=== PATIENT | male | born 1965 | race Caucasian/White ===

== ENCOUNTER → 2016-06-03 | Outpatient (CLI) | payer OTHER ==
[~2016-06-03] VITALS: Ht 172.7 cm; Wt 111.0 kg
[~2016-06-03] MED LIST: ACCUPRIL10 MG PO; ACTOS15 MG PO; ASPIRIN325 MG PO; ASPIRIN81 M2 PO; ATORVASTATIN CA20 MG PO; BUPROBAN150 MG PO; BUPROPION HCL150 M2 PO; BUPROPION XL150 MG PO; CARAFATE1 GM PO; CARVEDILOL6.25 MG PO; CELEXA40 MG PO; CHEWABLE MULTI1 EAC1 PO; CITALOPRAM HBR40 MG PO; COREG12.5 MG PO; COREG6.25 M1 PO; CYANOCOBALAM1000 MCG PO; ERGOCALCIF50000 UNIT PO; FEROSUL325 MG PO; GABAPENTIN400 MG PO; HUMALOG100 UNIT/1 SC; HUMALOG100 UNITS/ PO; HUMULIN N100 UNIT/2 SC; HYDROCHLOROTH12.5 M3 PO; IRON325 MG PO; JANUVIA25 M1 PO; LEVEMIR FL100 UNITS/ PO; LEVEMIR FL100 UNITS/ SC; LEVEMIR SC; LEVEMIR100 UNIT/2 SC; LEVEMIR100 UNIT/2 SQ; LISINOPRIL40 MG PO; LOVASTATIN40 MG PO; MIRALAX255 GM PO; MULTIVITAMINS1 EAC6 PO; NEURONTIN400 M1 PO; NEURONTIN400 MG PO; NIFEDICAL XL30 MG PO; NOVOLOG PE100 UNITS/ SC; NOVOLOG100 UNIT/2 SQ; Novolog Pen 3 Ml SC; OMEPRAZOLE40 M1 PO; PREVACID15 MG PO; PRILOSEC40 MG PO; REGLAN10 MG PO; VITAMIN B-122500 MCG PO; VITAMIN B-122500 MCG SL; VITAMIN D3400 UNI2 PO; VITAMIN D5000 UNIT PO; VITAMIN E100 UNIT PO; VITAMIN E400 UNI1 PO; VITAMIN E400 UNI6 PO; VITAMIN E400 UNIT PO; WELLBUTRIN75 MG PO; ZANTAC150 MG PO; ZESTRIL5 MG PO; ZETIA10 MG PO
[2016-06-03 10:44] LABS: POINT-OF-CARE METER ID UU14174212; POINT-OF-CARE USER ID AHSRSCSLC11
== END | disposition home or self-care (01) ==
LOC: OPR 06-02 09:00 → EDSTATUS 10:00
PROVIDERS: Specialist
PROC: 0FB03ZX Excision of Liver, Percutaneous Approach, Diagnostic (ICD-10-PCS; principal; 2016-06-03)
DX: K76.0 Fatty (change of) liver, not elsewhere classified (principal); R94.5 Abnormal results of liver function studies; K21.9 Gastro-esophageal reflux disease without esophagitis; E11.9 Type 2 diabetes mellitus without complications; I10 Essential (primary) hypertension
CPT/HCPCS: 77012; 82948; 85027; 85610; 85730; 88307; 88313; J3010

== ENCOUNTER 2016-11-06 04:32 | Emergency (ER) | payer OTHER ==
[~2016-11-06] VITALS: Ht 172.7 cm; Wt 109.0 kg
[2016-11-06 04:55] LABS: POINT-OF-CARE METER ID UU13113702
[2016-11-06 06:01] LABS: POINT-OF-CARE METER ID UU13113702
[2016-11-06 06:19] VITALS: BP 125/72
== END 2016-11-06 06:21 | disposition home or self-care (01) ==
LOC: EME → EDBD 04:32 → EME 04:32
PROVIDERS: Emergency Medicine
DX: E11.649 Type 2 diabetes mellitus with hypoglycemia without coma (principal); J45.909 Unspecified asthma, uncomplicated; E78.5 Hyperlipidemia, unspecified; I10 Essential (primary) hypertension; K21.9 Gastro-esophageal reflux disease without esophagitis; Z87.442 Personal history of urinary calculi; Z86.73 Personal history of transient ischemic attack (TIA), and cerebral infarction without residual deficits; Z79.82 Long term (current) use of aspirin; Z79.4 Long term (current) use of insulin; Z87.891 Personal history of nicotine dependence
CPT/HCPCS: 82948; 99281; 99284

== ENCOUNTER 2016-12-07 11:24 | Observation (INO) | payer OTHER ==
[~2016-12-07] VITALS: Ht 172.7 cm; Wt 104.8 kg
[2016-12-07 12:37] LABS: EOSINOPHIL (%) 2.3 % (0-5); EOSINOPHIL COUNT 0.2 K/uL (0-0.3); HEMATOCRIT 30.8 % (38.0-50.0); IMMATURE GRANULOCYTE (%) 0.3 % (0.0-0.7); INSTRUMENT ABS NEUTROPHIL CT 5.1 K/uL; LYMPHOCYTE COUNT 1.6 K/uL (1.0-2.8); MCH 32.1 PG (29.0-34.0); MCHC 33.8 G/DL (30.0-36.0); MCV 95.1 FL (86-99); MEAN PLAT.VOLUME 11.1 uM^3 (9.0-12.4); MONOCYTE (%) 7.9 % (3-12); MONOCYTE COUNT 0.6 K/uL (0-0.8); NEUTROPHIL COUNT 5.1 K/uL (1.8-6.4); PLATELET COUNT 227 K/uL (156-360); RBC DIS.WIDTH-CV 11.4 % (11.8-14.6); RBC DIS.WIDTH-SD 39.8 % (39-53); RED BLOOD COUNT 3.24 M/uL (4.00-5.50); WHITE BLOOD COUNT 7.4 K/uL (4.1-10.2)
[2016-12-07 12:52] LABS: CHLORIDE 100 mEq/L (99-109); SODIUM 127 mEq/L (136-147)
[2016-12-07 12:55] LABS: ANION GAP 7 MEQ/L (2-14)
[2016-12-07 12:57] LABS: GFR ESTIMATE (CALCULATED) 52 mL/min/
[2016-12-07 12:58] LABS: UREA NITROGEN (BUN) 32 mg/dL (9-23)
[2016-12-07 13:07] LABS: GLUCOSE 650 mg/dL (70-99)
[2016-12-07 14:50] LABS: TROP-I INTERPRETATION NEGATIVE; TROPONIN-I < 0.01 ng/mL (0.0-0.30)
[2016-12-07] MEDS ORDERED: ATORVASTATIN CA10 MG PO (14:51)
[2016-12-07] MEDS ORDERED: BUPROPION XL150 MG PO (14:52)
[2016-12-07] MEDS ORDERED: LISINOPRIL20 MG PO (14:54)
[2016-12-07] MEDS ORDERED: NORVASC5 MG PO (14:55)
[2016-12-07] MEDS ORDERED: METFORMIN HCL500 M1 PO (14:55)
[2016-12-07] MEDS ORDERED: RANITIDINE HCL150 MG PO (14:55)
[2016-12-07] MEDS ORDERED: HUMULIN R500 UNITS/ SC ×3 (14:57→14:58)
[2016-12-07 15:11] LABS: POINT-OF-CARE METER ID UU13113702
[2016-12-07 15:38] LABS: CHLORIDE 104 mEq/L (99-109)
[2016-12-07 15:41] LABS: ANION GAP 12 MEQ/L (2-14)
[2016-12-07 15:44] LABS: GFR ESTIMATE (CALCULATED) 56 mL/min/
[2016-12-07 15:45] LABS: UREA NITROGEN (BUN) 29 mg/dL (9-23)
[2016-12-07 15:46] LABS: GLUCOSE 401 mg/dL (70-99); POTASSIUM 4.7 mEq/L (3.7-5.4); SODIUM 136 mEq/L (136-147)
[2016-12-07 18:24] VITALS: BP 180/74
[2016-12-07 19:26] VITALS: BP 154/83
[2016-12-07 21:31] LABS: POINT-OF-CARE METER ID UU14149397
[2016-12-07 23:47] VITALS: BP 136/65
[2016-12-08 04:01] VITALS: BP 132/64
[2016-12-08 06:28] LABS: ANION GAP 11 MEQ/L (2-14); CHLORIDE 101 MEQ/L (99-109); GFR ESTIMATE (CALCULATED) > 59 mL/min/; GLUCOSE 261 mg/dL (70-99); POTASSIUM 4.7 MEQ/L (3.7-5.4); SAMPLE HEMOLYSIS CHECK 0; SAMPLE ICTERIC CHECK 0; SAMPLE LIPEMIA CHECK 0; SODIUM 136 MEQ/L (136-147); UREA NITROGEN (BUN) 24 mg/dL (9-23)
[2016-12-08 08:49] VITALS: BP 181/82
[2016-12-08 09:13] VITALS: BP 150/70
[2016-12-08 10:52] LABS: POINT-OF-CARE METER ID UU13113702
[2016-12-08 17:05] LABS: ANION GAP 11 MEQ/L (2-14); CHLORIDE 102 MEQ/L (99-109); GFR ESTIMATE (CALCULATED) > 59 mL/min/; POTASSIUM 4.1 MEQ/L (3.7-5.4); SAMPLE HEMOLYSIS CHECK 0; SAMPLE ICTERIC CHECK 0; SAMPLE LIPEMIA CHECK 0; SODIUM 140 MEQ/L (136-147); UREA NITROGEN (BUN) 27 mg/dL (9-23)
[2016-12-08 17:12] LABS: GLUCOSE 80 mg/dL (70-99)
== END 2016-12-08 19:52 | disposition home or self-care (01) ==
LOC: EME 11:24 → 3EAST 15:12 → EDOF 15:12 → 3EAST 18:04
PROVIDERS: Emergency Medicine; Hospitalist; Internal Medicine
DX: E87.5 Hyperkalemia (principal); E11.65 Type 2 diabetes mellitus with hyperglycemia; Z79.4 Long term (current) use of insulin; Z86.73 Personal history of transient ischemic attack (TIA), and cerebral infarction without residual deficits; J45.909 Unspecified asthma, uncomplicated; E78.5 Hyperlipidemia, unspecified; I10 Essential (primary) hypertension; Z88.8 Allergy status to other drugs, medicaments and biological substances; Z87.891 Personal history of nicotine dependence
CPT/HCPCS: 71010; 80048; 80048 91; 82948; 84484; 85025; 93005; 99281; 99285; G0378; J1644; J1815; J7030

== ENCOUNTER 2016-12-25 20:20 | Emergency (ER) | payer OTHER ==
[~2016-12-25] VITALS: Ht 172.7 cm; Wt 107.2 kg
[~2016-12-25 20:20] MED LIST changes: +ATORVASTATIN CA10 MG PO; +HUMULIN R500 UNITS/ SC; +LISINOPRIL20 MG PO; +METFORMIN HCL500 M1 PO; +NORVASC5 MG PO; +RANITIDINE HCL150 MG PO
[2016-12-25 21:28] LABS: HEMATOCRIT 30.7 % (38.0-50.0); MCH 31.8 PG (29.0-34.0); MCHC 33.9 G/DL (30.0-36.0); MCV 93.9 FL (86-99); MEAN PLAT.VOLUME 10.7 uM^3 (9.0-12.4); PLATELET COUNT 220 K/uL (156-360); RBC DIS.WIDTH-CV 11.6 % (11.8-14.6); RBC DIS.WIDTH-SD 39.8 % (39-53); RED BLOOD COUNT 3.27 M/uL (4.00-5.50); WHITE BLOOD COUNT 9.2 K/uL (4.1-10.2)
[2016-12-25 21:37] LABS: ADD MIUA? YES; BILIRUBIN NEGATIVE; BLOOD NEGATIVE; COLOR YELLOW ((YELLOW)); GLUCOSE (STRIP) 50; KETONES NEGATIVE; LEUKOCYTES NEGATIVE; NITRITE NEGATIVE; PROTEIN (STRIP) 30; SPECIFIC GRAVITY 1.014 (1.000-1.030); UROBILINOGEN 0.2 MG/DL (0.2-1.0)
[2016-12-25 21:40] LABS: CHLORIDE 104 mEq/L (99-109); POTASSIUM 4.6 mEq/L (3.7-5.4); SODIUM 136 mEq/L (136-147)
[2016-12-25 21:42] LABS: GLUCOSE 164 mg/dL (70-99)
[2016-12-25 21:43] LABS: ANION GAP 10 MEQ/L (2-14)
[2016-12-25 21:44] LABS: TOTAL BILIRUBIN 0.6 mg/dL (0.0-1.0)
[2016-12-25 21:45] LABS: SERUM ETHYL ALCOHOL < 10 mg/dL
[2016-12-25 21:45] LABS: AMPHETAMINE NEGATIVE (500 ng/mL); BARBITURATES NEGATIVE (200 ng/mL); BENZODIAZEPINES NEGATIVE (150 ng/mL); COCAINE NEGATIVE (150 ng/mL); INTERNAL CONTROLS VALID? YES; METHADONE NEGATIVE (200 ng/mL); METHAMPHETAMINE NEGATIVE (500 ng/mL); OPIATES (MORPHINE) NEGATIVE (100 ng/mL); OXYCODONE NEGATIVE (100 ng/mL); PHENCYCLIDINE NEGATIVE (25 ng/mL); PROPOXYPHENE NEGATIVE (300 ng/mL); THC CANNABINOIDS NEGATIVE (50 ng/mL); TRICYCLIC ANTIDEPRESSANTS NEGATIVE (300 ng/mL)
[2016-12-25 21:46] LABS: ALKALINE PHOSPHATASE 263 IU/L (3-129); GFR ESTIMATE (CALCULATED) 52 mL/min/
[2016-12-25 21:47] LABS: UREA NITROGEN (BUN) 32 mg/dL (9-23)
[2016-12-25 21:55] LABS: BACTERIA RARE /HPF; EPITHELIAL CELLS RARE /HPF; HYALINE CASTS 15-20 /LPF; MUCUS TRACE /LPF; RED BLOOD CELLS 0-5 /HPF (0-5); WHITE BLOOD CELLS 0-5 /HPF (0-5)
[2016-12-25 22:24] VITALS: BP 135/75
== END 2016-12-25 22:25 | disposition home or self-care (01) ==
LOC: EME → EDBD 20:20 → EME 22:25
PROVIDERS: Emergency Medicine
DX: F33.0 Major depressive disorder, recurrent, mild (principal); F71 Moderate intellectual disabilities; E11.9 Type 2 diabetes mellitus without complications; Z79.4 Long term (current) use of insulin; I10 Essential (primary) hypertension; E78.5 Hyperlipidemia, unspecified; Z86.73 Personal history of transient ischemic attack (TIA), and cerebral infarction without residual deficits; Z79.82 Long term (current) use of aspirin; Z87.891 Personal history of nicotine dependence
CPT/HCPCS: 80053; 81003; 85027; 90837; 99281; 99285; G0480

== ENCOUNTER 2017-02-07 15:38 | Emergency (ER) | payer OTHER ==
[~2017-02-07] VITALS: Ht 172.7 cm; Wt 106.9 kg
[2017-02-07 16:50] LABS: EOSINOPHIL (%) 3.5 % (0-5); EOSINOPHIL COUNT 0.3 K/uL (0-0.3); HEMATOCRIT 33.5 % (38.0-50.0); IMMATURE GRANULOCYTE (%) 0.5 % (0.0-0.7); IMMATURE GRANULOCYTE COUNT 0.1 K/uL; INSTRUMENT ABS NEUTROPHIL CT 5.9 K/uL; LYMPHOCYTE COUNT 2.2 K/uL (1.0-2.8); MCH 31.8 PG (29.0-34.0); MCHC 33.7 G/DL (30.0-36.0); MCV 94.4 FL (86-99); MEAN PLAT.VOLUME 10.2 uM^3 (9.0-12.4); MONOCYTE (%) 8.4 % (3-12); MONOCYTE COUNT 0.8 K/uL (0-0.8); NEUTROPHIL (%) 63.4 % (45-76); NEUTROPHIL COUNT 5.9 K/uL (1.8-6.4); PLATELET COUNT 224 K/uL (156-360); RBC DIS.WIDTH-CV 11.1 % (11.8-14.6); RBC DIS.WIDTH-SD 38.7 % (39-53); RED BLOOD COUNT 3.55 M/uL (4.00-5.50); WHITE BLOOD COUNT 9.4 K/uL (4.1-10.2)
[2017-02-07 16:56] LABS: CHLORIDE 107 mEq/L (99-109); POTASSIUM 4.2 mEq/L (3.7-5.4); SODIUM 136 mEq/L (136-147)
[2017-02-07 16:57] LABS: MAGNESIUM 2.1 mg/dL (1.3-2.7)
[2017-02-07 16:58] LABS: GLUCOSE 100 mg/dL (70-99)
[2017-02-07 17:00] LABS: ANION GAP 12 MEQ/L (2-14); TOTAL BILIRUBIN 0.5 mg/dL (0.0-1.0)
[2017-02-07 17:02] LABS: ALKALINE PHOSPHATASE 245 IU/L (3-129); GFR ESTIMATE (CALCULATED) > 59 mL/min/
[2017-02-07 17:03] LABS: UREA NITROGEN (BUN) 23 mg/dL (9-23)
[2017-02-07 17:45] LABS: ADD MIUA? NO; BILIRUBIN NEGATIVE; BLOOD NEGATIVE; COLOR YELLOW ((YELLOW)); GLUCOSE (STRIP) NEGATIVE; KETONES NEGATIVE; LEUKOCYTES NEGATIVE; NITRITE NEGATIVE; PROTEIN (STRIP) 30; SPECIFIC GRAVITY 1.006 (1.000-1.030); UCUL ADDED? NO; UROBILINOGEN 0.2 MG/DL (0.2-1.0)
[2017-02-07 19:17] LABS: POINT-OF-CARE METER ID UU13113702
[2017-02-07 20:24] LABS: POINT-OF-CARE METER ID UU13113702
[2017-02-07 21:26] VITALS: BP 190/91
[2017-02-08 09:13] LABS: POINT-OF-CARE METER ID UU13113702
[2017-02-08 09:13] LABS: POINT-OF-CARE METER ID UU13113702
[2017-02-08 09:13] LABS: POINT-OF-CARE METER ID UU13113702
== END 2017-02-07 21:22 | disposition home or self-care (01) ==
LOC: EME → EDBD 15:38 → EME 21:22
PROVIDERS: Emergency Medicine
DX: E11.649 Type 2 diabetes mellitus with hypoglycemia without coma (principal); Z87.442 Personal history of urinary calculi; I50.9 Heart failure, unspecified; I11.0 Hypertensive heart disease with heart failure; K21.9 Gastro-esophageal reflux disease without esophagitis; J45.909 Unspecified asthma, uncomplicated; E78.5 Hyperlipidemia, unspecified; Z86.73 Personal history of transient ischemic attack (TIA), and cerebral infarction without residual deficits; Z89.411 Acquired absence of right great toe; Z79.84 Long term (current) use of oral hypoglycemic drugs; Z79.82 Long term (current) use of aspirin; Z79.4 Long term (current) use of insulin; Z87.891 Personal history of nicotine dependence
CPT/HCPCS: 80053; 81003; 82948; 83735; 85025; 93005; 99281; 99284; J7030

== ENCOUNTER 2017-03-17 19:33 | Emergency (ER) | payer OTHER ==
[~2017-03-17] VITALS: Ht 172.7 cm; Wt 108.6 kg
[2017-03-17 20:18] LABS: HEMATOCRIT 35.1 % (38.0-50.0); MCH 32.4 PG (29.0-34.0); MCHC 34.5 G/DL (30.0-36.0); MCV 93.9 FL (86-99); MEAN PLAT.VOLUME 10.7 uM^3 (9.0-12.4); PLATELET COUNT 310 K/uL (156-360); RBC DIS.WIDTH-CV 11.8 % (11.8-14.6); RBC DIS.WIDTH-SD 40.4 % (39-53); RED BLOOD COUNT 3.74 M/uL (4.00-5.50); WHITE BLOOD COUNT 12.9 K/uL (4.1-10.2)
[2017-03-17 20:25] LABS: CHLORIDE 108 mEq/L (99-109); SODIUM 136 mEq/L (136-147)
[2017-03-17 20:26] LABS: POTASSIUM 3.9 mEq/L (3.7-5.4)
[2017-03-17 20:28] LABS: GLUCOSE 57 mg/dL (70-99)
[2017-03-17 20:29] LABS: ANION GAP 11 MEQ/L (2-14); TOTAL BILIRUBIN 0.8 mg/dL (0.0-1.0)
[2017-03-17 20:31] LABS: ALKALINE PHOSPHATASE 330 IU/L (3-129); GFR ESTIMATE (CALCULATED) > 59 mL/min/
[2017-03-17 20:32] LABS: UREA NITROGEN (BUN) 19 mg/dL (9-23)
[2017-03-17 22:09] LABS: ADD MIUA? YES; BILIRUBIN NEGATIVE; BLOOD MODERATE; COLOR YELLOW ((YELLOW)); GLUCOSE (STRIP) NEGATIVE; KETONES NEGATIVE; LEUKOCYTES NEGATIVE; NITRITE NEGATIVE; PROTEIN (STRIP) 100; SPECIFIC GRAVITY 1.011 (1.000-1.030); UROBILINOGEN 0.2 MG/DL (0.2-1.0)
[2017-03-17 22:12] LABS: BACTERIA NONE SEEN /HPF; EPITHELIAL CELLS NONE SEEN /HPF; MUCUS TRACE /LPF; RED BLOOD CELLS 15-20 /HPF (0-5); UCUL ADDED? NO; WHITE BLOOD CELLS 0-5 /HPF (0-5)
[2017-03-17 22:33] LABS: POINT-OF-CARE METER ID UU14100415
[2017-03-17 22:39] VITALS: BP 119/62
[2017-03-18 12:54] LABS: POINT-OF-CARE METER ID UU14100415
== END 2017-03-17 22:40 | disposition home or self-care (01) ==
LOC: EME → EDBD 19:33 → EME 19:33
PROVIDERS: Emergency Medicine
DX: E11.649 Type 2 diabetes mellitus with hypoglycemia without coma (principal); Z79.4 Long term (current) use of insulin; I10 Essential (primary) hypertension; E78.5 Hyperlipidemia, unspecified; Z79.82 Long term (current) use of aspirin; Z86.73 Personal history of transient ischemic attack (TIA), and cerebral infarction without residual deficits; Z87.891 Personal history of nicotine dependence
CPT/HCPCS: 80053; 81003; 82948; 85027; 99281; 99285